=== PATIENT | female | born 1965 | race Caucasian/White ===

== ENCOUNTER 2024-08-29 22:21 | Emergency (ER) | payer OTHER, SELFPAY ==
[2024-08-29 22:44] VITALS: BP 127/83; PULSE 84; TEMP 36.9; O2SAT 97; BMI 32.9
--- NOTE | 2024-08-29 23:16 | ED.SKABFB1 ---
HPI - Skin/Abscess/Foreign Bdy General Chief complaint: Skin/Abscess/Foreign Body Stated complaint: Rash Time Seen by Provider: 08/29/24 22:55 Source: patient Mode of arrival: walk-in Limitations: no limitations Related Data Home Medications ?Medication ?Instructions ?Recorded ?Confirmed No Known Home Medications 08/29/24 08/29/24 Allergies Allergy/AdvReac Type Severity Reaction Status Date / Time Penicillins Allergy Severe Swelling Verified 08/29/24 22:43 of Lip/Tongue/Throat PFSH PFSH Social History Little interest or pleasure in doing things: not at all Feeling down, depressed, or hopeless: not at all Exam Constitutional Vital Signs, click to edit/add: Last Vital Signs Temp 98.4 F 08/29/24 22:44 Pulse 84 08/29/24 22:44 Resp 19 08/29/24 22:44 BP 127/83 08/29/24 22:44 Pulse Ox 97 08/29/24 22:44 O2 Del Method Room Air 08/29/24 22:44 Course Vital Signs Vital signs: Vital Signs Temperature 98.4 F 08/29/24 22:44 Pulse Rate 84 08/29/24 22:44 Respiratory Rate 19 08/29/24 22:44 Blood Pressure 127/83 08/29/24 22:44 Pulse Oximetry 97 08/29/24 22:44 Oxygen Delivery Method Room Air 08/29/24 22:44 Temperature 98.4 F 08/29/24 22:44 Pulse Rate 84 08/29/24 22:44 Respiratory Rate 19 08/29/24 22:44 Blood Pressure 127/83 08/29/24 22:44 Pulse Oximetry 97 08/29/24 22:44 Oxygen Delivery Method Room Air 08/29/24 22:44 Discharge Plan Discharge Chief Complaint: Skin/Abscess/Foreign Body Prescriptions / Home Meds: No Action No Known Home Medications Print Language: Upper Sorbian Referrals: Physician,Non-Staff, MD [Primary Care Provider] - 1 week
--- NOTE | 2024-08-29 23:20 | ED.SKABFB1 ---
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 She states that she first noticed 1 on her right breast. She has a flat pink macule overlying her right breast at this time. Since then she has had multiple small outcropping's in different areas such as her left lateral hip and buttock area. She has a erythematous area in the medial aspect of her left lower leg. She does not have any bull's-eye lesions. She has not had any fever. She states that they itch and burn at times. She states she does feel like she has had several bites from flying insects that have wings like mouth. She does not have any difficulty breathing or swallowing. She did recently change her detergent from Tide to gain. She is not on any medications. She has not had any fever. She has no neck pain or stiffness. She has no chest pain or shortness of breath. Related Data Home Medications ?Medication ?Instructions ?Recorded ?Confirmed No Known Home Medications 08/29/24 08/29/24 Allergies Allergy/AdvReac Type Severity Reaction Status Date / Time Penicillins Allergy Severe Swelling Verified 08/29/24 22:43 of Lip/Tongue/Throat Review of Systems ROS Status of ROS 10 or more systems reviewed and unremarkable except as noted in history and below PFSH PFS Social History Little interest or pleasure in doing things: not at all Feeling down, depressed, or hopeless: not at all Exam Narrative Exam Narrative: Vital signs and Nursing Notes reviewed: Patient is afebrile with a normal pulse, normal blood pressure, she is not hypoxic with pulse ox of 97% on room air General: Awake, alert, oriented, no acute distress, lying comfortably on the stretcher HEENT: Normocephalic atraumatic, mucous membranes are moist and pink, eyes are clear, normal conjunctiva, vision is grossly intact, posterior pharynx is normal in appearance. No facial or oral lesions noted Neck: Supple, no meningeal signs, no anterior or posterior cervical lymphadenopathy Chest: Lungs are clear to auscultation with good air entry, there is no wheezing rhonchi or rales appreciated no accessory muscle use, patient is speaking in complete sentences-no chest wall tenderness to palpation CVS: Regular rate and rhythm S1-S2, no murmurs rubs or gallops, pulses are brisk and equal bilaterally ABD: Soft, nondistended, nontender, no rebound guarding or rigidity, bowel sounds are normal, no pulsatile masses appreciated Extremities: Moving all extremities, no lower extremity tenderness or swelling noted, negative Homans' sign, pulses are brisk and equal bilaterally Skin: There is a small macule on the right breast without local cellulitis. Patient has small cropping's of pink papules on the lower extremities, specifically on her left lower leg where she has a papule that appears to have a clear center, she also has 2 areas with 3 pink papules in the line. This appears to possibly be an insect that bit her multiple times at one setting. She has 1 similar papule in the low back. In the left medial lower leg there is an lacy erythematous area that is nontender. Clinically these appear to be some kind of insect bite or sting. There is no sign of abscess or local cellulitis. Neuro: No focal deficits Constitutional Vital Signs, click to edit/add: Last Vital Signs Temp 98.4 F 08/29/24 22:44 Pulse 84 08/29/24 22:44 Resp 19 08/29/24 22:44 BP 127/83 08/29/24 22:44 Pulse Ox 97 08/29/24 22:44 O2 Del Method Room Air 08/29/24 22:44 Course Vital Signs Vital signs: Vital Signs Temperature 98.4 F 08/29/24 22:44 Pulse Rate 84 08/29/24 22:44 Respiratory Rate 19 08/29/24 22:44 Blood Pressure 127/83 08/29/24 22:44 Pulse Oximetry 97 08/29/24 22:44 Oxygen Delivery Method Room Air 08/29/24 22:44 Temperature 98.4 F 08/29/24 22:44 Pulse Rate 84 08/29/24 22:44 Respiratory Rate 19 08/29/24 22:44 Blood Pressure 127/83 08/29/24 22:44 Pulse Oximetry 97 08/29/24 22:44 Oxygen Delivery Method Room Air 08/29/24 22:44 MDM - Skin/Abscess/Foreign Bdy MDM Narrative Medical decision making narrative: This 59-year-old female presents for evaluation of a rash on her right breast and lower extremities that started 4 days ago. She does work with her doing landscaping. Clinically it appears that she has insect bites or stings. She states they are itchy at times. She is not have any difficulty breathing or swelling. There are no oral lesions. She does admit that she has a window air conditioning unit that spiders could get into her bedroom gaining access in this area. There is no sign of cellulitis or abscess. She was medicated with a dose of Kenalog, Benadryl and given Keflex. She will be discharged home with prescription for Keflex. 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 Discharge Plan Discharge Chief Complaint: Skin/Abscess/Foreign Body Clinical Impression: Insect bites, Allergic reaction to insect bite Patient Disposition: Home, Self-Care Time of Disposition Decision: 23:17 Condition: Good Prescriptions / Home Meds: No Action No Known Home Medications Print Language: Pashto Instructions: Insect Bite or Sting (ED) Additional Instructions: Soak in warm Epsom salt water. Use antibiotics as directed. Avoid picking at the bites. Return the emergency department for fevers, chills, redness swelling or any other concerns. Use Benadryl and topical anti-itch preparations such as cortisone for the itching and burning. Referrals: Physician,Non-Staff, MD [Primary Care Provider] - 1 week
[2024-08-29] MEDS: CEPHALEXIN 500 MG CAPSULE PO (23:38)
[2024-08-29] MEDS: TRIAMCINOLONE ACETONIDE 40 MG/ML VIAL IM (23:38)
[2024-08-29] MEDS: DIPHENHYDRAMINE HCL 25 MG CAPSULE PO (23:38)
--- NOTE | 2024-08-29 23:44 | PC.NURSE ---
i gave this patient verbal and written discharge orders along with 1 Rx and this patient voices yes to understanding these. at time of discharge this patient voices no concerns, needs and shows no signs of distress
== END 2024-08-29 23:44 | disposition home or self-care (01) ==
PROVIDERS: Emergency Provider Emergency Medicine
DX: S20.161A Insect bite (nonvenomous) of breast, right breast, initial encounter (principal); S80.862A Insect bite (nonvenomous), left lower leg, initial encounter; S80.861A Insect bite (nonvenomous), right lower leg, initial encounter; W57.XXXA Bitten or stung by nonvenomous insect and other nonvenomous arthropods, initial encounter; T78.49XA Other allergy, initial encounter
CPT/HCPCS: 99284; J3301